=== PATIENT | female | born 2000 | race African-American/Black ===

== ENCOUNTER 2024-06-05 00:35 | Emergency (ER) | payer OTHER, SELFPAY ==
[2024-06-05 00:41] VITALS: BP 141/94; PULSE 60; RESP 16; TEMP 36.7; O2SAT 100
[2024-06-05 04:22] VITALS: BP 135/95; PULSE 60; RESP 16; O2SAT 100
[2024-06-05 04:31] LABS: BEDSIDEPREGUCG Negative
--- NOTE | 2024-06-05 04:57 | ED.FEMALEGU ---
HPI - Female Genitourinary General Chief complaint: Urogenital-Female Stated complaint: pelvic pain Time Seen by Provider: 06/05/24 04:55 Source: patient Mode of arrival: ambulatory Limitations: no limitations History of Present Illness HPI Narrative: Patient presents with pelvic pain. She has been using ibuprofen and Tylenol. She states she has a burning sensation around her clitoris. [facility] call in still recently on Friday for this issue. She was diagnosed with herpes and he is to infection and prescribed valacyclovir and 2 doses of fluconazole. She started taking developed a clear and Friday of the fluconazole 1st dose on Friday. She was later called on Friday and told she had urinary tract infection due to STrep and bacterial vaginosis and was prescribed cephalexin metronidazole which she started on Friday. She has also been using azo. She notes that her urine is orange due to the azo she continues to have some pain. Last menstrual period was on the . She is sexually active with 1 male partner in last month; uses condoms. No history of sexually transmitted infections previously. female. She is in the process of changing her Ob Gyne as her previous 1 was in [facility]. She denies any hematuria. She had been having dysuria but this stopped on Friday. She has urinary frequency. Also having yellow vaginal discharge but no fevers. Related Data Allergies Allergy/AdvReac Type Severity Reaction Status Date / Time No Known Allergies Allergy Verified 06/05/24 00:36 Exam Narrative: GENERAL: Well-appearing, well-nourished, and in no acute distress. HEAD: Normocephalic, atraumatic. EYES: Non injected, non icteric ENT: Nares clear, no rhinorrhea or epistaxis. NECK: Supple. CHEST: Speaking in full sentences. No respiratory distress. HEART: Regular rate and rhythm. . ABDOMEN: Soft, nondistended. EXTREMITIES: Normal range of motion. No edema. SKIN: Warm, dry, no rash. NEURO: No focal deficits. Alert and oriented x3. PSYCH: Normal mood and affect. Course Vital Signs Vital signs: Vital Signs Temperature 98.0 F 06/05/24 00:41 Pulse Rate 60 06/05/24 00:41 Respiratory Rate 16 06/05/24 00:41 Blood Pressure 141/94 H 06/05/24 00:41 Pulse Oximetry 100 07/27/24 00:41 Oxygen Delivery Room Air 06/05/24 00:41 Temperature 98.0 F 06/05/24 00:41 Pulse Rate 60 06/05/24 04:22 Respiratory Rate 16 06/05/24 04:22 Blood Pressure 135/95 H 06/05/24 04:22 Pulse Oximetry 100 06/05/24 04:22 Oxygen Delivery Room Air 06/05/24 00:41 MDM - Female Genitourinary MDM Narrative Medical decision making narrative: Patient presents with burning around her clitoris as well as general pelvic pain. Recently diagnosed with herpes, yeast infection, urinary tract infection, and bacterial vaginosis and placed on appropriate therapies for all of them. The urinary tract infection and BV she just started treating for Friday. She does note that in general her pain is improving but the fact that has persisted had her concerned. Through shared decision making we discussed that we perform another pelvic exam however it seems like there is low utility in this. Her antibiotic appears to have been culture guided. We discussed the patient ranges require more time to allow for this to be treated strongly recommend she follow-up with an Ob Gyne and provided referral. Patient stable for discharge. Lab Data Labs: Lab Results 06/05/24 06/05/24 Range/Units 04:26 04:28 Urine Color [place] H (Yellow) Urine Appearance Clear (Clear) Urine pH 5.5 (5.0-9.0) Ur Specific [place] 1.016 (1.001-1.035) Urine Protein Negative (Negative) mg/dL Urine Glucose (UA) Negative (Negative) mg/dL Urine Ketones Negative (Negative) mg/dL Ur Blood (Man) Negative (Negative) Urine Nitrate Positive H (Negative) Urine Bilirubin 1+ H (Negative) Urin
[2024-06-05 05:00] LABS: Appearance Urine Clear (Clear); Bacteria Urine None Seen /hpf; Bilirubin Urine 1+ (Negative); Blood Urine Negative (Negative); Color Urine Orange (Yellow); Glucose Urine UA Negative (Negative); Ketones Urine Negative (Negative); Leukocyte Esterase Ur 2+ LEU/UL (Negative); Need Manual Microscopic Reviewed; Nitrate Urine Positive (Negative); Non Pathogenic Casts 0-2; Protein Urine Negative (Negative); Specific Grav Ur 1.016 (1.001-1.035); Squamous Epithelial Cell Urine Occasional /hpf (Few); pH Urine 5.5 (5.0-9.0)
[2024-06-05 05:01] LABS: Add Urine Microscopic? YES
== END 2024-06-05 05:36 | disposition home or self-care (01) ==
LOC: ANHED 05:32
PROVIDERS: Emergency Provider Student in an Organized Health Care Education/Training Program
DX: N39.0 Urinary tract infection, site not specified (principal)
CPT/HCPCS: 81001; 81025; 87086; 99283